=== PATIENT | female | born 1955 | race Caucasian/White ===

== ENCOUNTER 2025-02-05 14:32 | Inpatient (IN) | payer MEDICARE, OTHER ==
[~2025-02-05] VITALS: Ht 165.1 cm; Wt 106.6 kg
[2025-02-05 15:23] LABS: PLATELET COUNT (AUTO) 228 K/uL (150-450); RED BLOOD CELL COUNT(AUTO) 4.69 MIL/uL (4.0-5.2); RED CELL DISTRIBUTION WIDTH 14.4 % (11.5-15.0); WHITE BLOOD COUNT (AUTO) 7.5 K/uL (4.3-11.0)
[2025-02-05] MEDS ORDERED: ASPIRIN 81 MG TAB.CHEW ONE (15:24)
[2025-02-05 15:35] LABS: CALCIUM, SERUM 9.2 mg/dL (8.5-10.1); CREATININE 1.0 mg/dL (0.6-1.3); SODIUM SERUM 142 mmol/L (136-145); UREA NITROGEN, BLOOD 22 mg/dL (7-18)
[2025-02-05 15:40] LABS: ASPARTATE AMINOTRANSFERASE 17 U/L (15-37); TOTAL PROTEIN, SERUM 6.9 g/dL (6.4-8.2)
[2025-02-05] MEDS: ASPIRIN 81 MG TAB.CHEW PO ONE (15:43)
[2025-02-05] MEDS: IV NS 0.9% 1,000 ML BAG IV ONE (15:44)
[2025-02-05 15:45] LABS: NT-PRO BNP 37 pg/mL (0-125)
[2025-02-05] MEDS ORDERED: ROSU5TAB PO (16:26)
[2025-02-05] MEDS ORDERED: ZEPBOUND SQ (16:26)
[2025-02-05] MEDS ORDERED: VALS1TAB6 PO (16:26)
[2025-02-05 18:25] LABS: APPEARANCE,URINE CLEAR (CLEAR); BLOOD, URINE NEGATIVE Ery/uL (NEGATIVE); LEUKOCYTE ESTERASE ,URINE 2+ (NEGATIVE); NITRITE, URINE NEGATIVE (NEGATIVE); UGLUCOSE NEGATIVE (NEGATIVE)
[2025-02-05] MEDS ORDERED: ONDANSETRON HCL/PF 4 MG/2 ML VIAL IVP PRN (18:30)
[2025-02-05] MEDS ORDERED: Z GUARD REMEDY 4 OZ OINT TP PRN (18:30)
[2025-02-05] MEDS ORDERED: MAG HYDROX/AL HYDROX/SIMETH 30 ML UDC PO PRN (18:30)
[2025-02-05] MEDS ORDERED: MAGNESIUM HYDROXIDE 30 ML UDC PO PRN (18:30)
[2025-02-05] MEDS ORDERED: ACETAMINOPHEN 325 MG TABLET PO PRN (18:30)
[2025-02-05 18:39] LABS: ADD URINE CULTURE YES; SQUAMOUS EPITHELIAL CELL,UR Moderate /HPF (None Seen)
[2025-02-05 18:47] VITALS: O2SAT 96
[2025-02-05] MEDS: IV NS 0.9% 1,000 ML IV SCH (19:31)
[2025-02-05 20:00] VITALS: BP 109/50; TEMP 97.9; O2SAT 99
[2025-02-05] MEDS: PANTOPRAZOLE 40 MG TABLET.DR PO SCH (20:18)
[2025-02-06 06:59] LABS: CALCIUM, SERUM 9.1 mg/dL (8.5-10.1); CREATININE 0.9 mg/dL (0.6-1.3); PHOSPHORUS 3.7 mg/dL (2.5-4.9); SODIUM SERUM 142.0 mmol/L (136-145); UREA NITROGEN, BLOOD 17.0 mg/dL (7-18)
[2025-02-06 07:11] LABS: PLATELET COUNT (AUTO) 232 K/uL (150-450); RED BLOOD CELL COUNT(AUTO) 4.67 MIL/uL (4.0-5.2); RED CELL DISTRIBUTION WIDTH 14.1 % (11.5-15.0); WHITE BLOOD COUNT (AUTO) 8.8 K/uL (4.3-11.0)
[2025-02-06 07:16] LABS: LDL 65.0 mg/dL (0-99)
[2025-02-06] MEDS: ATORVASTATIN 10 MG TABLET PO SCH (08:24)
[2025-02-06] MEDS: HYDROCHLOROTHIAZIDE 25 MG TABLET PO SCH (08:25)
[2025-02-06] MEDS: VALSARTAN 80 MG TABLET PO SCH (08:25)
[2025-02-06] MEDS ORDERED: IV NS 0.9% 1,000 ML IV PRN (08:43)
[2025-02-06 08:50] VITALS: BP 112/50; TEMP 97.6; O2SAT 97
== END 2025-02-06 15:31 | disposition home or self-care (01) | DRG 391 ==
LOC: ER 14:36 → TELE 18:07 → MED 19:53
PROVIDERS: ADMIT Nurse Practitioner Acute Care; ATTEND Internal Medicine
DX: K21.9 Gastro-esophageal reflux disease without esophagitis (principal); K85.90 Acute pancreatitis without necrosis or infection, unspecified; I10 Essential (primary) hypertension; E78.5 Hyperlipidemia, unspecified; E66.01 Morbid (severe) obesity due to excess calories; Z96.652 Presence of left artificial knee joint; Z98.890 Other specified postprocedural states; Z88.6 Allergy status to analgesic agent; Z88.2 Allergy status to sulfonamides; Z88.1 Allergy status to other antibiotic agents; Z88.5 Allergy status to narcotic agent; Z91.013 Allergy to seafood; Z79.899 Other long term (current) drug therapy; Z90.49 Acquired absence of other specified parts of digestive tract; Z68.39 Body mass index [BMI] 39.0-39.9, adult; T50.995A Adverse effect of other drugs, medicaments and biological substances, initial encounter; Y92.9 Unspecified place or not applicable
CPT/HCPCS: 36415; 71045-TC; 76700-TC; 80048-TC; 80061-TC; 80076-TC; 81001; 83690-TC; 83735-TC; 83880; 84100-TC; 84443-TC; 84478-TC; 84484-TC; 85025-TC; 87086-TC; A4223; G0378; J7030